=== PATIENT | male | born 1995 | race Caucasian/White ===

== ENCOUNTER 2024-08-21 20:51 | Emergency (ER) | payer BC, SELFPAY ==
[2024-08-21 20:54] VITALS: BP 139/96
[2024-08-21 21:14] LABS: % Basophils 0.4 % (0-2); % Immature Granulocytes 0.2 % (0-0.5); % Lymphocytes 30.1 % (20.5-51.1); % Monocytes 7.6 % (1.7-9.3); % Neutrophils 59.7 % (42.2-75.2); Absolute Basophils 0.1 10^3/uL (0-0.2); Absolute Eosinophils 0.2 10^3/uL (0-0.7); Absolute Lymphocytes 3.6 10^3/uL (1.2-3.4); Absolute Monocytes 0.9 10^3/uL (0.1-0.6); Absolute Neutrophils 7.2 10^3/uL (1.4-6.5); Hematocrit 48.4 % (39.0-52.0); Hemoglobin 16.7 g/dL (13.0-18.0); Mean Corp Hgb Conc. 34.5 g/dL (33.0-37.0); Mean Corpuscular Hgb 28.2 pg (27.0-31.0); Mean Corpuscular Volume 81.6 fL (80.0-94.0); Mean Platelet Volume 12.6 fL (7.4-10.4); Nucleated Red Blood Cells % 0 % (-); Platelet Count 176 10^3/uL (130-400); Red Blood Cell Count 5.93 10^6/uL (4.70-6.10); Red Cell Dist. Width 12.4 % (11.5-14.5); White Blood Cell Count 12.1 10^3/uL (4.8-10.8)
[2024-08-21 21:27] LABS: ALT (SGPT) 70 U/L (0-50); AST (SGOT) 35 U/L (17-59); Albumin 4.2 g/dl (3.5-5.0); Alkaline Phosphatase 90 U/L (38-126); Blood Urea Nitrogen 15 mg/dl (9-20); Calcium 9.6 mg/dl (8.4-10.2); Carbon Dioxide 24 mmol/L (22-30); Chloride 105 mmol/L (98-107); Glucose 125 mg/dl (70-99); Potassium 4.2 mmol/L (3.5-5.1); Sodium 140 mmol/L (135-145); Total Bilirubin 0.8 mg/dl (0.2-1.3); Total Protein 7.4 g/dl (6.3-8.2); eGFR > 60.00
[2024-08-21 21:29] LABS: COVID-19 Antigen Negative (Negative)
[2024-08-21 23:32] VITALS: BP 140/89
[2024-08-21] MEDS: DECADRON 10 MG PO (23:36)
[2024-08-21] MEDS: DUONEB 3 ML INH (23:36)
[2024-08-21 23:37] VITALS: BMI 47.6
--- NOTE | 2024-08-22 00:12 | ED.GENMED ---
History of Present Illness
General
Chief Complaint: Fever
Source: patient
Exam Limitations: none
Time Seen by Provider: 08/21/24 22:39
Nursing documentation reviewed up to this point in time: agreed with
History of Present Illness
History of Present Illness:
29-year-old male presenting to the emergency department today with concerns of sore throat shortness of breath fevers ongoing since Thursday. Denies any chest pain does have ongoing hacking cough nasal congestion as well as facial pressure. Denies
nausea or vomiting.
Review of Systems
Review of Systems
Allergies reviewed?: Yes
All Other Systems: ROS reviewed and negative except as documented in HPI and ROS
Phy Exam
Physical Exam
Physical Exam:
GENERAL: Alert , in no apparent distress
EYE: pupils equal and reactive
NECK: Supple, no significant adenopathy.
ENT: Swollen boggy nasal turbinates, swelling to the posterior pharynx, o/p clr, mmm.
CARDIAC: Regular rate and rhythm .
LUNGS: Slight end expiratory wheeze diffusely
ABDOMEN: Soft, without focal tenderness, no r/g, no cvat
NEUROLOGICAL: Alert and oriented, no focal neuro deficits
SKIN: Warm and dry, skin intact.
MUSCULOSKELETAL: No edema, well perfused.
PSYCH: Normal and appropriate interaction.
Sepsis
Sepsis Screening
Sepsis Assessment: Sepsis Ruled Out
Sepsis Screen
Sepsis Screen: Sepsis Ruled Out
Date: 08/22/24
Time: 00:16
Course
Orders/Labs/Results
Orders:
Orders
08/21/24 20:58
Chest [CR Chest - 2 Views ] Urgent
Comment:
Reason For Exam: cough
08/21/24 21:03
COVID-19 Antigen Urgent
Source: Nasal Swab
Complete Blood Count/With Diff Urgent
Comprehensive Metabolic Panel Urgent
Influenza A+B Rapid Molecular Urgent
DANIELLE Source: Nasal Swab
Specimen Description:
08/21/24 23:19
Dexamethasone [Decadron] 10 mg PO NOW STA
Ipratropium/Albuterol Sulfate [Duoneb] 3 ml INH R NOW ONE
Abnormal Lab Results
08/21/24
21:03
WBC 12.1 H 10^3/uL
(4.8-10.8)
MPV 12.6 H fL
(7.4-10.4)
Absolute Neuts (auto) 7.2 H 10^3/uL
(1.4-6.5)
Absolute Lymphs (auto) 3.6 H 10^3/uL
(1.2-3.4)
Absolute Monos (auto) 0.9 H 10^3/uL
(0.1-0.6)
Glucose 125 H mg/dl
(70-99)
ALT 70 H U/L
(0-50)
08/21/24 21:03
08/21/24 21:03
Vital Signs
Initial and Last Documented VS:
Initial Vital Signs
Pulse Resp BP Pulse Ox
106 18 139/96 97
08/21/24 20:54 08/21/24 20:54 08/21/24 20:54 08/21/24 20:54
Last Documented Vital Signs
Temp Pulse Resp BP Pulse Ox
98.2 F 91 16 140/89 98
08/21/24 23:32 08/21/24 23:32 08/21/24 23:32 08/21/24 23:32 08/21/24 23:32
MDM/Problems Addressed
MDM/Problems Addressed:
29-year-old male presenting to the emergency department today with concerns of sore throat shortness of breath intermittent fevers over the past 6 days. On arrival mildly tachycardic but improving without specific treatment. Slight white count of
12 otherwise labs unremarkable. Chest x-ray without signs of pneumonia. Lungs with a slight end expiratory wheeze. Patient started on steroid as well as DuoNeb otherwise feeling better here stable for outpatient management return precautions
given.
*Critical Care Note
Total Time (30-74mins, 75-104mins- exclusive of procedures): Not Applicable
ED Attending Note
-
Portions of this chart may have been created with voice recognition software.� Occasional wrong word or��sound alike� substitutions may have occurred due to the inherent limitations of voice recognition software.
Discharge Plan
Departure
Patient Disposition: Home (Routine Discharge)
Date of Disposition: 08/22/24
Time of Disposition: 00:14
Patient with high blood pressure during this ER visit?: No
Condition: Good
Covid-19: Not Applicable
Discharge Problem:
Wheeze
Instructions: Asthma in adults
Prescriptions:
New
albuterol sulfate 90 mcg/actuation HFA aerosol inhaler
2 puff inhalation Q6H PRN (Reason: shortness of breath or wheezing) Qty: 8.5 0RF
prednisone 20 mg tablet
40 mg PO DAILY 3 Days Qty: 6 0RF
Activity Restrictions/Additional Instructions:
You came to the emergency department today with concerns of worsening symptoms after viral syndrome. This is likely inflammatory reaction. Please take the prescribed indication with hopeful improvement over the next few days. Please follow close
with your primary care doctor for ongoing symptoms. Return for any worsening, new or concerning symptoms.
Interventions
Interventions:
*Risk Screen - Suicide Last Done: 08/21/24 20:54
*General Assessment Last Done: 08/21/24 20:54
*Neglect/Abuse Screening Last Done: 08/21/24 20:54
*ED- Fall Risk Assessment Last Done: 08/21/24 20:54
*ED COVID-19 Vaccine History Last Done: 08/21/24 20:54
ED-EENT Assessment Last Done: 08/21/24 23:36
ED- Neurological Assessment Last Done: 08/21/24 23:36
ED- Pulmonary Assessment Last Done: 08/21/24 23:36
ED-Skin Assessment Last Done: 08/21/24 23:36
Discharge Date and Time
Print Language: PORTUGUESE
== END 2024-08-22 00:34 | disposition home or self-care (01) ==
LOC: EMR 20:51
PROVIDERS: Emergency Medicine; EMERGENCY PHYSICIAN Emergency Medicine; FAMILY PHYSICIAN Family Medicine
DX: R06.2 Wheezing (principal); R06.02 Shortness of breath; R50.9 Fever, unspecified; J02.9 Acute pharyngitis, unspecified; R00.0 Tachycardia, unspecified; Z11.52 Encounter for screening for COVID-19; Z90.49 Acquired absence of other specified parts of digestive tract
CPT/HCPCS: 99283; 94640; 71046; 80053; 85025; 87502; 87811